=== PATIENT | male | born 1995 ===

== ENCOUNTER 2016-11-02 12:19 | Emergency (ER) | payer SELFPAY ==
[2016-11-02 12:37] VITALS: BMI 25.0
[2016-11-02 12:38] VITALS: RESP 18; O2SAT 100
--- NOTE | 2016-11-02 14:15 | RAD ---
HISTORY: tachycardia COMPARISON: No prior. TECHNIQUE: Chest PA and lateral FINDINGS: LUNGS: No active pulmonary disease. PLEURA: No significant pleural effusion identified. No pneumothorax apparent. CARDIOVASCULAR: Normal. OSSEOUS STRUCTURES: No significant abnormalities. VISUALIZED UPPER ABDOMEN: Normal. OTHER FINDINGS: None. IMPRESSION: No active disease.
[2016-11-02 14:25] LABS: BASO % 0.1 % (0.0-2.0); EOS % 0.4 % (0.0-4.0); HEMATOCRIT 45.2 % (35.0-51.0); LYMPH # 1.7 K/uL (1.0-4.3); LYMPH % 26.9 % (20.0-40.0); MEAN CELL VOLUME 87.4 fL (80.0-94.0); MEAN CORPUSCULAR HEMOGLOBIN 30.5 pg (27.0-31.0); MEAN CORPUSCULAR HGB CONC 34.9 g/dL (33.0-37.0); MEAN PLATELET VOLUME 7.2 fL (7.2-11.7); MONO # 0.4 K/uL (0.0-0.8); MONO % 6.4 % (0.0-10.0); NRBC % 0.1 % (0.0-2.0); RED CELL DISTRIBUTION WIDTH 12.9 % (11.5-14.5); WHITE BLOOD COUNT 6.4 K/uL (4.8-10.8)
[2016-11-02 14:35] LABS: INR 1.1; PARTIAL THROMBOPLASTIN TIME 36 SECONDS (21-34)
[2016-11-02 14:36] LABS: CHLORIDE 99 mmol/L (98-107); POTASSIUM 3.8 mmol/L (3.6-5.2); SODIUM 141 mmol/L (132-148)
[2016-11-02 14:38] LABS: BILIRUBIN,TOTAL 0.9 mg/dL (0.2-1.3); GFR AFRICAN-AMERICAN > 60
[2016-11-02 14:39] LABS: ALB/GLOB RATIO 1.5 (1.0-2.1); ALKALINE PHOSPHATASE 36 U/L (38-126); ALT/SGPT 30 U/L (21-72); AST/SGOT 30 U/L (17-59); BLOOD UREA NITROGEN 7 mg/dL (9-20); CALCIUM 9.4 mg/dl (8.6-10.4); CARBON DIOXIDE 29 mmol/L (22-30); GLUCOSE,RANDOM 95 mg/dL (75-110); TOTAL PROTEIN 8.4 g/dL (6.3-8.3)
--- NOTE | 2016-11-02 15:16 | C.PDOC ---
History Of Present Illness 21 y/o male presents to the emergency department complaining that he "feels like something is wrong" with his heart because he has been experiencing recurrent episodes of palpitations for 2-3 weeks. He notes that he never calculated his heart rate. Patient states that he does not have any personal cardiac history but his grandmother of some "unknown heart problem" at the age of 60. Patient denies any chest pain, shortness of breath, fever, abdominal pain, vomiting, leg pain, or other complaints. Chief Complaint (Nursing): Chest Pain History Per: Patient History/Exam Limitations: no limitations Onset/Duration Of Symptoms: Days (2-3 weeks), Intermittent Episodes, Persistent Current Symptoms Are (Timing): Still Present Recent travel outside of the [place]: No Past Medical History Reviewed: Historical Data, Nursing Documentation, Vital Signs Vital Signs: Last Vital Signs Temp 98 F 11/02/16 16:32 Pulse 92 H 11/02/16 16:32 Resp 18 11/02/16 16:32 BP 118/74 11/02/16 16:32 Pulse Ox 100 11/02/16 16:32 - Medical History PMH: No Chronic Diseases Surgical History: No Surg Hx Family History: States: Other (grandmother of unknown heart issue at age 60 ) - Social History Hx Alcohol Use: No Hx Substance Use: No Review Of Systems Except As Marked, All Systems Reviewed And Found Negative. Constitutional: Negative for: Fever Cardiovascular: Positive for: Palpitations. Negative for: Chest Pain Respiratory: Negative for: Shortness of Breath Gastrointestinal: Negative for: Vomiting, Abdominal Pain Musculoskeletal: Negative for: Leg Pain Physical Exam - Physical Exam Appears: Non-toxic, No Acute Distress Skin: Normal Color, Warm, Dry Head: Atraumatic, Normacephalic Eye(s): bilateral: Normal Inspection, PERRL Neck: Normal ROM, Supple Chest: Symmetrical Cardiovascular: Rhythm Regular Respiratory: Normal Breath Sounds, No Rales, No Rhonchi, No Wheezing Gastrointestinal/Abdominal: Normal Exam, Soft, No Tenderness Back: Normal Inspection Extremity: Normal ROM, No Swelling Neurological/Psych: Oriented x3, Normal Speech, Normal Cognition ED Course And Treatment - Laboratory Results Result Diagrams: 11/02/16 14:18 11/02/16 14:18 ECG: Interpreted By Me ECG Rhythm: Sinus Rhythm ECG Interpretation: No Acute Changes Rate From EC (bpm) O2 Sat by Pulse Oximetry: 100 (ra) Pulse Ox Interpretation: Normal - Other Rad Chest X-Ray X-Ray: Viewed By Me, Read By Radiologist Interpretation: Accession No. : [id number]. Patient Name / ID : DEVANG CONRAD / [id number]. Exam Date : 11/02/2016 13:42:10 ( Approved ). Study Comment : Sex / Age : M / 21Y. Creator : Shaw Greene MD. Dictator : Shaw Greene MD. Cattery Operator : Assistant Surveyor : Shaw Greene MD. Approver2 : Report Date : 11/02/2016 14:14:26. My Comment : . HISTORY: tachycardia. COMPARISON: No prior. TECHNIQUE: Chest PA and lateral. FINDINGS: LUNGS: No active pulmonary disease. PLEURA: No significant pleural effusion identified. No pneumothorax apparent. CARDIOVASCULAR: Normal. OSSEOUS STRUCTURES: No significant abnormalities. VISUALIZED UPPER ABDOMEN: Normal. OTHER FINDINGS: None. IMPRESSION: No active disease. Progress Note: EKG, CXR, and Blood Work were ordered and reviewed. On reevaluation, patient is resting comfortably and in no acute distress; continues to deny chest pain or shortness of breath, no palpitations at this time. Patient discharged home and advised to follow up with physician in 1-2 days or return to ED for persistent or worsening symptoms. Disposition - Disposition Disposition: HOME/ ROUTINE Disposition Time: 16:08 Condition: STABLE Additional Instructions: Follow up with PMD/clinic within 1-2 days. return to ED if feel worse. Prescriptions: ALPRAZolam [Xanax] 0.25 mg PO BID #10 tab Instructions: Alprazolam (By mouth), Palpitations (ED) - Clinical Impression Clinical Impression: Palpitations - PA / EPILEPSY PHYSICIAN / Resident Statement MD/DO has reviewed & agrees with the documentation as recorded. - Scribe Statement The provider has reviewed the documentation as recorded by the Scribe (Josiane Palafox) All medical record entries made by the Scribe were at my direction and personally dictated by me. I have reviewed the chart and agree that the record accurately reflects my personal performance of the history, physical exam, medical decision making, and the department course for this patient. I have also personally directed, reviewed, and agree with the discharge instructions and disposition.
[2016-11-02 15:18] LABS: THYROID STIMULATING HORMONE 0.47 mIU/L (0.46-4.68)
[2016-11-02 16:32] VITALS: BP 118/74; PULSE 92; TEMP 98
--- NOTE | 2016-11-04 06:33 | CARD ---
APPROVED REPORT EKG Measurement Heart [id number] <Conclusion> Normal sinus rhythm Minimal voltage criteria for LVH, may be normal variant Borderline ECG
== END 2016-11-02 16:33 | disposition home or self-care (01) ==
LOC: C.ER 12:19
DX: R00.2 Palpitations (principal)
CPT/HCPCS: 71020; 80053; 82550; 82553; 84443; 84484; 85025; 85378; 85610; 85730; 93005; 99284; G0480